=== PATIENT | male | born 1985 | race Caucasian/White ===

== ENCOUNTER 2020-05-10 04:15 | Emergency (ER) | payer SELFPAY ==
[2020-05-10 04:17] VITALS: BP 189/101; PULSE 75; RESP 20; TEMP 36.8; O2SAT 99; BMI 32.5
--- NOTE | 2020-05-10 04:26 | RAD_ITS ---
STUDY: X-RAY CHEST REASON FOR EXAM: Male, 34 years old. chest pain, dizziness, pressure in jaw, hypertension TECHNIQUE: Single AP portable view of the chest. COMPARISON: None. FINDINGS: Ill-defined subpleural groundglass opacities are seen more prominent in the lung bases , may represent atypical pneumonia or viral pneumonia (COVID-19 ?). There is no demonstrated pleural abnormality. Normal size heart. Normal mediastinum and faisal. Normal visualized pulmonary arteries. Normal visualized aortic arch and descending thoracic aorta. Normal visualized thoracic spine. Normal visualized ribs, clavicles, and shoulders. There is no demonstrated abnormality of the visualized soft tissue structures of the upper abdomen. RAD/Chest 1 View (Portable) IMPRESSION: Ill-defined subpleural groundglass opacities are seen more prominent in the lung bases , may represent atypical pneumonia or viral pneumonia (COVID-19 ?). Electronically Signed: Katelyn Hudson, at 4:45 EST Tel , Service support ,
--- NOTE | 2020-05-10 04:26 | EKG12_ITS ---
Test Reason : CP Blood Pressure : / mmHG Vent. Rate : 074 BPM Atrial Rate : 074 BPM P-R Int : 150 ms QRS Dur : 092 ms QT Int : 370 ms P-R-T Axes : 066 076 045 degrees QTc Int : 410 ms Sinus rhythm with marked sinus arrhythmia with PSVC's Otherwise normal ECG Confirmed by LUPILLO FRIEND, SIOBHAN ([id number]), features editor ARLENE ERNST ([id number]) on 05/12/2020 12:49:29 PM Referred By: CL Confirmed By:SIOBHAN WESLEY MD
--- NOTE | 2020-05-10 04:31 | ED.VIS.GEN ---
History of Present Illness Chief Complaint: Chest Pain Informant: Patient Narrative: 34-year-old male with no significant past medical history presents with complaint of chest pain. States is been present for the past 2 and half hours. Describes a sharp and nonradiating. Denies any shortness of breath, nausea, vomiting, diaphoresis. States he had this approximately 3 years ago intermittently and it resolved on its own. States he is a current every day smoker. Denies any history of DVT or pulmonary embolism. Denies any family history of early cardiac . Past Medical History - Allergies and Home Meds Allergies/Adverse Reactions: Allergies No Known Allergies Allergy (Verified 05/10/20 04:22) Primary Care Physician: Pia Charles DO [STAFF PHYSICIAN] - 2 Days Past Medical History: None Surgical History: no surgical history Smoking Status: Current every day smoker Alcohol: None Drugs: None Review of Systems General: Denies: Chills, Fever, Sweats Eyes: Denies: Visual changes - bilaterally, Diplopia ENT: Denies: Rhinorrhea, Sore throat Cardiovascular: Reports: Chest pain. Denies: Palpitations Respiratory: Denies: Dyspnea, Cough, Dyspnea on exertion Gastrointestinal: Denies: Abdominal pain, Nausea, Vomiting, Diarrhea, Melena, Hematochezia Genitourinary: Denies: Dysuria, Hematuria, Frequency Musculoskeletal: Denies: Back pain, Extremity Pain Skin: Denies: Rash, Wounds Neurological: Denies: Headache, Weakness, Numbness Physical Exam Vital Signs/Narrative: Vital Signs Temp Pulse Resp BP Pulse Ox 05/10/20 04:17 98.2 F 75 20 H 189/101 H 99 Inital Vital Signs reviewed: Yes General: Well nourished, Well developed, No Acute Distress Head: Normocephalic, Atraumatic Eyes: Perrl, EOMI ENT: Moist mucous membranes, No rhinorrhea Neck: Supple, Nontender Cardiovascular: Regular rate, Regular rhythm, No murmurs Respiratory: No distress, CTA bilaterally, Chest nontender Abdomen: Soft, Nontender, Nondistended, Normal bowel sounds Back: Nontender, Normal Inspection Extremities: Nontender, No edema Skin: Normal color, No rash Neurological: Alert, Oriented x3, Cranial nerves II-XII grossly intact, Normal Strength, Normal Sensation Psychological: Normal affect, Normal Mood Diagnostic/Tx/Re-eval Chest X-Ray - ED: 1 View, Read by ED Physician, Read by Radiologist - Rhythm Strip Rhythm Strip: Sinus Rhythm Rate: 74 Ectopy: None - EKG Initial EKG Interpretation: Sinus Rhythm - Sinus rhythm with sinus arrhythmia at 74 bpm. IL interval of 150 ms. QTC of 410 ms. No evidence of ST elevation or depression at this time. - Medical Decision Making Appears well nontoxic. Vital signs within normal limits. D-dimer negative. 2 troponin by 3 hours are negative. EKG nonischemic. Chest x-ray which was read by myself as well as radiologist shows no acute process. Patient will be advised to follow-up with primary care for possible outpatient stress testing. His blood pressure is elevated. He has equal upper and lower extremity pulses. Advised to follow-up with primary care about getting this rechecked within 1 week. Asked to return for new or worsening symptoms. Patient agreeable and discharged home in stable condition. Impression: 1. Atypical chest pain 2. Dyspnea ED Disposition - Plan for ED Patient: Disposition: Home or Assisted Living Instructions: ED Chest Pain, Uncertain Cause Referrals: Pia Charles DO [STAFF PHYSICIAN] - 2 Days
[2020-05-10 04:36] LABS: Absolute Lymphocyte Count 1.85 X10^3/uL (0.83-4.51); Absolute Neutrophil Count 5.1 X10^3/uL (2.0-7.7); Basophil# 0.05 X10^3/uL; Basophil% 0.6 % (0-1); Eosinophil# 0.19 X10^3/uL; Eosinophils% 2.4 % (0-5); Hemoglobin 14.7 g/dL (13.0-16.5); Lymphocyte # 1.85 X10^3/ul (4.0); Lymphocyte % 23.7 % (19-41); Mean Corp Hgb Conc 33.4 g/dL (32-36); Mean Corpuscular Hgb 28.9 pg (27.0-32.0); Mean Corpuscular Volume 86.4 fL (80-94); Monocyte# 0.57 X10^3/uL; Monocyte% 7.3 % (0-10); NRBC Flagged by Analyzer 0 % (0-5); Neutrophil # 5.14 X10^3/uL (2.7-7.7); Neutrophil % 65.7 % (47-70); Platelet Count 345 K/mm3 (150-450); RBC Distribution Width CV 12.7 % (11.6-14.6); RBC Distribution Width SD 39.8 fl (35.1-43.9); Red Blood Count 5.09 M/mm3 (4.6-6.2); White Blood Count 7.8 K/mm3 (4.4-11.0)
[2020-05-10 04:51] LABS: D-Dimer Quantitative (DVT/PE) <= 0.27 FEU/ug/m (0.27-0.49)
[2020-05-10 04:57] LABS: Anion Gap 5 (5-15); BUN 13 mg/dL (7-18); BUN/Creat Ratio 13.7 RATIO (10-20); Calcium,Total 9.1 mg/dL (8.5-10.1); Chloride 107 mmol/L (98-107); Creatinine, Serum 0.95 mg/dL (0.70-1.30); EST Glomerular Filtration Rate 95 mL/min (>60); Est Glom Filt Rate - Afr Amer 115 mL/min (>60); Estimated Creatinine Clearance 101.47 ml/min; Glucose 129 mg/dL (74-106); Potassium 3.7 mmol/L (3.5-5.1); Sodium Level 141 mmol/L (136-145)
[2020-05-10 06:07] VITALS: O2SAT 100
[2020-05-10 07:34] VITALS: BP 180/85; PULSE 103; RESP 19; O2SAT 97
[2020-05-10 08:10] VITALS: BP 159/90; PULSE 74; RESP 16; O2SAT 99
== END 2020-05-10 08:10 | disposition home or self-care (01) ==
PROVIDERS: Emergency Provider Emergency Medicine
DX: R07.89 Other chest pain (principal); R06.00 Dyspnea, unspecified; F17.200 Nicotine dependence, unspecified, uncomplicated
CPT/HCPCS: 71045; 80048; 84484; 85025; 85379; 87426; 93005; 99285; A4216